=== PATIENT | female | born 1985 | race American Indian/Alaskan Native ===

== ENCOUNTER 2020-10-07 18:08 | Emergency (ER) | payer MEDICAID, OTHER ==
--- NOTE | 2020-10-07 18:54 | Emergency Department Report ---
ED HPI - General Chief complaint: Vaginal Bleeding Stated complaint: 17 WEEKS , LEAKING FLUID Time Seen by Provider: 10/07/20 18:28 Source: patient Mode of arrival: Wheelchair Limitations: No Limitations - History of Present Illness Initial comments: 35-year-old female currently 17 weeks with twins presents to the hospital complaining of leakage of fluid since this morning and vaginal bleeding with cramping that started in route to the hospital. Patient has used approximately 2 pantiliners today for the leakage of fluid. She describes vaginal bleeding as a gush of bleeding that then stops. Suprapubic cramping is mild to moderate in intensity and aggravated with palpation. This is patient's fifth and she has no living children. She has had 1 stillborn and 3 miscarriages including a triplet gestation. Patient is currently taking progesterone suppositories because her internal cervical os is open. MAC OPERATOR: Mild PACKAGE CHECKER - Related Data Home Medications Medication Instructions Recorded Confirmed Last Taken No.137/Iron/Folic Acd 1 each PO DAILY 10/07/20 10/07/20 Unknown [[facility] Vitamins Tablet] Progesterone 1 tab DAILY 10/07/20 10/07/20 Unknown Allergies Allergy/AdvReac Type Severity Reaction Status Date / Time No Known Allergies Allergy Verified 10/07/20 18:25 ED Review of Systems ROS: Stated complaint: 17 WEEKS , LEAKING FLUID Other details as noted in HPI Comment: All other systems reviewed and negative ED Past Medical Hx - Past Medical History Previous Medical History?: No - Surgical History Past Surgical History?: No - Social History Smoking Status: Former Smoker - Medications Home Medications: Home Medications Medication Instructions Recorded Confirmed Last Taken Type No.137/Iron/Folic Acd 1 each PO DAILY 10/07/20 10/07/20 Unknown History [[facility] Vitamins Tablet] Progesterone 1 tab DAILY 10/07/20 10/07/20 Unknown History ED Physical Exam - General Limitations: No Limitations - Other Other exam information: General: No acute distress Head: Atraumatic Eyes: normal appearance ENT: Moist mucous membranes Neck: Normal appearance, no midline tenderness Chest: Clear to auscultation bilaterally CV: Regular rate and rhythm Abdomen: Soft, normal bowel sounds, mild suprapubic tenderness on exam, nondistended, no rebound or guarding Back: Normal inspection Extremity: Normal inspection, full range of motion Neuro: Alert O x 3, no facial asymmetry, speech clear, no gross motor sensory deficit Psych: Appropriate behavior Skin: No rash ED Course Vital Signs 10/07/20 10/07/20 10/07/20 18:13 18:26 18:36 Temperature 98.4 F Pulse Rate 89 80 Respiratory 18 18 16 Rate Blood Pressure 139/82 Blood Pressure 141/85 [Left] O2 Sat by Pulse 99 100 Oximetry - Consultations Consultation #1: 10/08/20 22:00 Dr. Ascencio PACKAGE CHECKER did come to the ED to evaluate patient and will determine disposition ED Medical Decision Making - Lab Data Result diagrams: 10/07/20 18:40 10/07/20 18:40 Lab Results 10/07/20 10/07/20 10/07/20 Range/Units 18:40 18:40 18:40 WBC 8.5 (4.5-11.0) K/mm3 RBC 4.66 (3.65-5.03) M/mm3 Hgb 13.4 (10.1-14.3) gm/dl Hct 39.7 (30.3-42.9) % MCV 85 (79-97) fl MCH 29 (28-32) pg MCHC 34 (30-34) % RDW 14.0 (13.2-15.2) % Plt Count 192 (140-440) K/mm3 Lymph % (Auto) 21.1 (13.4-35.0) % Harrison % (Auto) 6.4 (0.0-7.3) % Eos % (Auto) 1.5 (0.0-4.3) % Baso % (Auto) 0.9 (0.0-1.8) % Lymph # (Auto) 1.8 (1.2-5.4) K/mm3 Harrison # (Auto) 0.5 (0.0-0.8) K/mm3 Eos # (Auto) 0.1 (0.0-0.4) K/mm3 Baso # (Auto) 0.1 (0.0-0.1) K/mm3 Seg Neutrophils % 70.1 H (40.0-70.0) % Seg Neutrophils # 6.0 (1.8-7.7) K/mm3 Sodium 135 L (137-145) mmol/L Potassium 3.7 (3.6-5.0) mmol/L Chloride 102.4 (98-107) mmol/L Carbon Dioxide 25 (22-30) mmol/L Anion Gap 11 mmol/L BUN 5 L (7-17) mg/dL Creatinine 0.5 L (0.6-1.2) mg/dL Estimated GFR > 60 ml/min BUN/Creatinine Ratio 10 % Glucose 89 (65-100) mg/dL Calcium 8.6 (8.4-10.2) mg/dL Total Bilirubin < 0.20 (0.1-1.2) mg/dL AST 13 (5-40) units/L ALT 10 (7-56) units/L Alkaline Phosphatase 44 (35-129) units/L Total Protein 6.4 (6.3-8.2) g/dL Albumin 3.4 L (3.9-5) g/dL Albumin/Globulin Ratio 1.1 % HCG, Quant 53791 H (0-4) mIU/mL Membranes Rupture (Negative) Blood Type 10/07/20 10/07/20 Range/Units 18:40 22:05 WBC (4.5-11.0) K/mm3 RBC (3.65-5.03) M/mm3 Hgb (10.1-14.3) gm/dl Hct (30.3-42.9) % MCV (79-97) fl MCH (28-32) pg MCHC (30-34) % RDW (13.2-15.2) % Plt Count (140-440) K/mm3 Lymph % (Auto) (13.4-35.0) % Harrison % (Auto) (0.0-7.3) % Eos % (Auto) (0.0-4.3) % Baso % (Auto) (0.0-1.8) % Lymph # (Auto) (1.2-5.4) K/mm3 Harrison # (Auto) (0.0-0.8) K/mm3 Eos # (Auto) (0.0-0.4) K/mm3 Baso # (Auto) (0.0-0.1) K/mm3 Seg Neutrophils % (40.0-70.0) % Seg Neutrophils # (1.8-7.7) K/mm3 Sodium (137-145) mmol/L Potassium (3.6-5.0) mmol/L Chloride (98-107) mmol/L Carbon Dioxide (22-30) mmol/L Anion Gap mmol/L BUN (7-17) mg/dL Creatinine (0.6-1.2) mg/dL Estimated GFR ml/min BUN/Creatinine Ratio % Glucose (65-100) mg/dL Calcium (8.4-10.2) mg/dL Total Bilirubin (0.1-1.2) mg/dL AST (5-40) units/L ALT (7-56) units/L Alkaline Phosphatase (35-129) units/L Total Protein (6.3-8.2) g/dL Albumin (3.9-5) g/dL Albumin/Globulin Ratio % HCG, Quant (0-4) mIU/mL Membranes Rupture Positive A (Negative) Blood Type A POSITIVE - Radiology Data Radiology results: report reviewed ULTRASOUND OBSTETRIC INDICATION / CLINICAL INFORMATION: 17wk twin, leak fluid and blood. Clinical Gestational Age (GA): 17.1 weeks.days TECHNIQUE: Transabdominal and Transvaginal. COMPARISON: None available. FINDINGS: There are twin intrauterine gestations. BABY A: Biparietal Diameter = 3.7 cm = 17.3 weeks.days Head Circumference = 13.6 cm = 17.1 weeks.days Abdominal Circumference = 11.4 cm = 17.1 weeks.days Femur Length = 2.3 cm = 17.0 weeks.days Average Ultrasound Age (AUA) = 17.1 weeks.days Heart Rate: 150 beats per minute. Estimated Weight in grams (if calculated): 182 Estimated Weight Growth Percentile (if calculated): 42% Position: cephalic. BABY B: Biparietal Diameter = 3.7 cm = 17.3 weeks.days Head Circumference = 14.3 cm = 17.4 weeks.days Abdominal Circumference = 11.6 cm = 17.3 weeks.days Femur Length = 2.4 cm = 17.2 weeks.days Average Ultrasound Age (AUA) = 17.3 weeks.days Heart Rate: 156 beats per minute. Estimated Weight in grams (if calculated): 192 Estimated Weight Growth Percentile (if calculated): 59% Position: breech. Cervix: closed. Length in cm (if measured): Not measured. Placenta: anterior and free of the os. Amniotic Fluid Volume: normal Maternal Adnexa: No significant abnormality. IMPRESSION: 1. Twin, living intrauterine gestations with estimated sonographic age of 17.1 and 17.3 weeks.days. 2. No significant sonographic abnormality. - Medical Decision Making 35-year-old female complains of leakage of fluid or vaginal bleeding. High risk due to multiple miscarriages. Ultrasound does not reveal any acute abnormality. Dr. Ascencio came to bedside to evaluate patient and perform physical exam. Please refer to her note. No active bleeding noted. Patient will be discharged with outpatient follow-up with high risk MAC OPERATOR. Pt does not require rhogam since RH + Critical Care Time: No Critical care attestation.: If time is entered above; I have spent that time in minutes in the direct care of this critically ill patient, excluding procedure time. ED Disposition Clinical Impression: 17 weeks gestation of , Short cervix, Vaginal discharge during in second trimester Twin gestation in second trimester Qualifiers: Multiple gestation type: dichorionic and diamniotic Qualified Code(s): O30.042 - Twin , dichorionic/diamniotic, second trimester Disposition: DC- TO HOME OR SELFCARE Is pt being admited?: No Does the pt Need Aspirin: No Condition: Stable Instructions: Second Trimester of , Cervical Insufficiency Additional Instructions: Follow-up with your doctor or doctor/clinic provided. Return if symptoms worsen as indicated by your discharge instructions. Referrals: LETHA ASCENCIO MD [Staff Physician] - (As scheduled) Time of Disposition: 00:27
[2020-10-07 18:59] LABS: Basophils # (Auto) 0.1 K/mm3 (0.0-0.1); Basophils % (Auto) 0.9 % (0.0-1.8); Eosinophils # (Auto) 0.1 K/mm3 (0.0-0.4); Eosinophils % (Auto) 1.5 % (0.0-4.3); Hematocrit 39.7 % (30.3-42.9); Hemoglobin 13.4 gm/dl (10.1-14.3); Lymphocytes # (Auto) 1.8 K/mm3 (1.2-5.4); Lymphocytes % (Auto) 21.1 % (13.4-35.0); Mean Corpuscular HGB Conc 34 % (30-34); Mean Corpuscular Volume 85 fl (79-97); Monocytes # (Auto) 0.5 K/mm3 (0.0-0.8); Monocytes % (Auto) 6.4 % (0.0-7.3); Platelet Count 192 K/mm3 (140-440); Red Blood Count 4.66 M/mm3 (3.65-5.03)
[2020-10-07 19:20] LABS: Alanine Aminotransferase 10 units/L (7-56); Albumin 3.4 g/dL (3.9-5); Blood Urea Nitrogen 5 mg/dL (7-17); Calcium 8.6 mg/dL (8.4-10.2); Hemolysis Index 1
[2020-10-07 19:21] LABS: BUN/Creatinine Ratio 10
[2020-10-07] MEDS ORDERED: ONDANSETRON 4 MG/2 ML INJ IV ONE (20:48)
--- NOTE | 2020-10-07 21:32 | Ultrasound Report ---
ULTRASOUND OBSTETRIC INDICATION / CLINICAL INFORMATION: 17wk twin, leak fluid and blood. Clinical Gestational Age (GA): 17.1 weeks.days TECHNIQUE: Transabdominal and Transvaginal. COMPARISON: None available. FINDINGS: There are twin intrauterine gestations. BABY A: Biparietal Diameter = 3.7 cm = 17.3 weeks.days Head Circumference = 13.6 cm = 17.1 weeks.days Abdominal Circumference = 11.4 cm = 17.1 weeks.days Femur Length = 2.3 cm = 17.0 weeks.days Average Ultrasound Age (AUA) = 17.1 weeks.days Heart Rate: 150 beats per minute. Estimated Weight in grams (if calculated): 182 Estimated Weight Growth Percentile (if calculated): 42% Position: cephalic. BABY B: Biparietal Diameter = 3.7 cm = 17.3 weeks.days Head Circumference = 14.3 cm = 17.4 weeks.days Abdominal Circumference = 11.6 cm = 17.3 weeks.days Femur Length = 2.4 cm = 17.2 weeks.days Average Ultrasound Age (AUA) = 17.3 weeks.days Heart Rate: 156 beats per minute. Estimated Weight in grams (if calculated): 192 Estimated Weight Growth Percentile (if calculated): 59% Position: breech. Cervix: closed. Length in cm (if measured): Not measured. Placenta: anterior and free of the os. Amniotic Fluid Volume: normal Maternal Adnexa: No significant abnormality. IMPRESSION: 1. Twin, living intrauterine gestations with estimated sonographic age of 17.1 and 17.3 weeks.days. 2. No significant sonographic abnormality. Signer Name: Jef Rodriguez MD Signed: 10/07/2020 9:28 PM Workstation Name: [id number]
--- NOTE | 2020-10-08 00:11 | Consultation ---
History of Present Illness - Reason for Consult Consult date: 10/08/20 - History of Present Illness This is a 35 yof with poor history who presented to the ED complaining of rupture of membranes. Estimated gestational age 17 weeks twin gestation complicated by shortened cervix. She has been comanaged with [facility]. She was just recently started on vaginal progesterone nightly. Patient states she started having some leaking earlier today that became more copious she called the office and was instructed to follow-up in the emergency department for evaluation Past History : 5 Term Births: 0 Premature Births: 1 Living Children: 0 Para: 1 Mult. Births: 0 Prev : 0 Prev. attempt? 0 Aborta: 3 Elect. Ab: 0 Spont. Ab: 3 Ectopics: 0 # 1 Delivery date: 2008 Weeks Gestation: 6.5 months Delivery type: Sex: Male weight: ?? Comments: PPROM, IOL, IUFD @ 6.5 months # 2 Delivery date: 2013 Weeks Gestation: 10w Delivery type: SAB Comments: triplet , D&C # 3 Delivery date: 2017 Weeks Gestation: 11wk Delivery type: SAB Comments: D&C # 4 Delivery date: 2018 Weeks Gestation: 4-6wks Delivery type: SAB Comments: no D&C Risk Factors: Smoked Tobacco Use: Never smoker Smokeless Tobacco Use: Never Passive smoke exposure: no Drug use: no HIV high-risk behavior: no Alcohol use: no Exercise: yes Times per week: 2 Type of Exercise: walking Seatbelt use: 100 % Past Medical History: hx HTN, no meds. 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 of genital herpes: no Partner hx. of genital herpes: no Rash, Viral, or Febrile illness since last LMP? no Varicella/Chicken Pox Status: Previous Disease Genetic History Congenital Heart Defect: Mom: no Dad: no Maxine Disease: Mom: no Dad: no Thalassemia Mom: no Dad: no Neural Tube Defect Mom: no Dad: no Down's Syndrome Mom: no Dad: no Joe-Sachs Mom: no Dad: no Sickle Cell Disease/Trait Mom: yes Dad: no Comments: +trait Hemophilia Mom: no Dad: no Muscular Dystrophy Mom: no Dad: no Cystic Fibrosis Mom: no Dad: no [place] Chorea Mom: no Dad: no Mental Retardation Mom: no Dad: no Fragile X Mom: no Dad: no Other Genetic/Chromosomal Disorder Mom: no Dad: no Child w/other defect Mom: no Dad: no Enviromental Exposures Xray Exposure: no Medication, drug, or alcohol use since LMP: no Chemical/Other Exposure: no Exposure to Cat Liter: no Hx of Parvovirus (Fifth Disease): no Occupational Exposure to Children: none Active Medications (reviewed today): None Current Allergies (reviewed today): No known allergies Medications and Allergies Allergies Allergy/AdvReac Type Severity Reaction Status Date / Time No Known Allergies Allergy Verified 10/07/20 18:25 Home Medications Medication Instructions Recorded Confirmed Last Taken Type No.137/Iron/Folic Acd 1 each PO DAILY 10/07/20 10/07/20 Unknown History [[facility] Vitamins Tablet] Progesterone 1 tab DAILY 10/07/20 10/07/20 Unknown History Exam - Constitutional Vitals: Temp Pulse Resp BP Pulse Ox 98.4 F 80 16 141/85 100 10/07/20 18:13 10/07/20 18:36 10/07/20 18:36 10/07/20 18:36 10/07/20 18:36 General appearance: Present: no acute distress - Respiratory Respiratory effort: normal - Abdominal General gastrointestinal: Present: soft, non-tender Female genitourinary: Present: normal, other (Speculum exam revealed thin white drainage on the perineum as well as on speculum exam. Cervix feels closed. No bleeding noted.) - Rectal Rectal Exam: deferred - Psychiatric Psychiatric: appropriate mood/affect, intact judgment & insight, memory intact, cooperative - Neurologic Neurologic: CNII-XII intact Results - Labs CBC & Chem 7: 10/07/20 18:40 10/07/20 18:40 Labs: Abnormal lab results 10/07/20 10/07/20 10/07/20 Range/Units 18:40 18:40 18:40 Seg Neutrophils % 70.1 H (40.0-70.0) % Sodium 135 L (137-145) mmol/L BUN 5 L (7-17) mg/dL Creatinine 0.5 L (0.6-1.2) mg/dL Albumin 3.4 L (3.9-5) g/dL HCG, Quant 65128 H (0-4) mIU/mL Membranes Rupture (Negative) 10/07/20 Range/Units 22:05 Seg Neutrophils % (40.0-70.0) % Sodium (137-145) mmol/L BUN (7-17) mg/dL Creatinine (0.6-1.2) mg/dL Albumin (3.9-5) g/dL HCG, Quant (0-4) mIU/mL Membranes Rupture Positive A (Negative) - Imaging and Cardiology US - abdomen: report reviewed, image reviewed Assessment and Plan - Patient Problems (1) 17 weeks gestation of Current Visit: Yes Status: Acute (2) Twin gestation in second trimester Current Visit: Yes Status: Acute Qualifiers: Multiple gestation type: dichorionic and diamniotic Qualified Code(s): O30.042 - Twin , dichorionic/diamniotic, second trimester (3) Short cervix Current Visit: Yes Status: Acute (4) Vaginal discharge during in second trimester Current Visit: Yes Status: Acute Plan to address problem: ROM test was performed that was positive however fern test was negative. Ultrasound images appear to reveal objectively normal fluid around both babies. Equivocal findings were discussed with patient. She shows no signs and symptoms of chorioamnionitis. Will allow home. Patient instructed no sex, no exercise. She was instructed to stay on her property and only lead for an emergency or for her office visits. I will have someone from my office discussed these findings with the edi specialist today and will contact patient with further management.
--- NOTE | 2020-10-08 00:19 | Discharge Summary ---
Providers - Providers Date of discharge: 10/08/20 Primary care physician: [facility]ELOP[facility]IST Hospitalization Reason for admission: other (Evaluation for possible rupture of membranes) Procedure: other (Ultrasound evaluation speculum exam) Condition at discharge: Stable Disposition: DC-01 TO HOME OR SELFCARE - Discharge Diagnoses (1) 17 weeks gestation of Status: Acute (2) Twin gestation in second trimester Status: Acute Qualifiers: Multiple gestation type: dichorionic and diamniotic Qualified Code(s): O30.042 - Twin , dichorionic/diamniotic, second trimester (3) Short cervix Status: Acute (4) Vaginal discharge during in second trimester Status: Acute Plan - Provider Discharge Summary Activity: other (No sex. No exercise. Stay at home. No heavy lifting greater than 10 pounds. Check your temperature twice a day call the office if 100.4x2, heavy vaginal bleeding, copious leaking of fluid from the vagina, or any concerns.) Diet: routine Additional instructions: [] Smoking cessation referral if applicable(refer to patient education folder for contact #) [] Refer to [facility] Booklet Call your doctor immediately for: * Fever > 100.5 * Heavy vaginal bleeding ( >1 pad per hour) * Severe persistent headache * Shortness of breath * Reddened, hot, painful area to leg or breast * Drainage or odor from incision. * Keep incision clean and dry at all times and follow doctor's instructions regarding bathing/showering - Follow up plan Follow up: LETHA JOHNSON MD [Staff Physician] - (As scheduled)
[2020-10-08 00:42] VITALS: BP 135/84
== END 2020-10-08 00:42 | disposition home or self-care (01) ==
LOC: ED 18:08
DX: O30.002 Twin pregnancy, unspecified number of placenta and unspecified number of amniotic sacs, second trimester (principal); O26.872 Cervical shortening, second trimester; O20.8 Other hemorrhage in early pregnancy; Z3A.17 17 weeks gestation of pregnancy; Z87.891 Personal history of nicotine dependence; Z79.899 Other long term (current) drug therapy
CPT/HCPCS: 36415; 76805; 76810; 80053; 84112; 84702; 85025; 86900; 86901; 96374; 99284; J2405

== ENCOUNTER 2020-10-08 04:11 | Observation (INO) | payer MEDICAID ==
--- NOTE | 2020-10-08 06:49 | History and Physical Report ---
History of Present Illness Date of examination: 10/08/20 Chief complaint: "Big gush of fluid from my vagina" History of present illness: This is a 35 yof with poor history who was evaluated and discharged home from the ED earlier this am for ? ROM. She is now 17 weeks with twin gesta tijoan who call back as soon as she arrived home stating she had a "big gush of fluid". Her previous exam revealed +ROM test, negative pooling, negative fern and subjectively normal FIDEL, +FHT's x2. She is known to have short cervix. She admitted now for another evaluation for ?ROM. She denies f/c/n/v bleeding and pelvic pain/pressure at this time. Past History : 5 Term Births: 0 Premature Births: 1 Living Children: 0 Para: 1 Mult. Births: 0 Prev : 0 Prev. attempt? 0 Aborta: 3 Elect. Ab: 0 Spont. Ab: 3 Ectopics: 0 # 1 Delivery date: 2008 Weeks Gestation: 6.5 months Delivery type: Infant Sex: Male weight: ?? Comments: PPROM, IOL, IUFD @ 6.5 months # 2 Delivery date: 2013 Weeks Gestation: 10w Delivery type: SAB Comments: triplet , D&C # 3 Delivery date: 2017 Weeks Gestation: 11wk Delivery type: SAB Comments: D&C # 4 Delivery date: 2018 Weeks Gestation: 4-6wks Delivery type: SAB Comments: no D&C Risk Factors: Smoked Tobacco Use: Never smoker Smokeless Tobacco Use: Never Passive smoke exposure: no Drug use: no HIV high-risk behavior: no Alcohol use: no Exercise: yes Times per week: 2 Type of Exercise: walking Seatbelt use: 100 % Past Medical History: hx HTN, no meds. 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 of genital herpes: no Partner hx. of genital herpes: no Rash, Viral, or Febrile illness since last LMP? no Varicella/Chicken Pox Status: Previous Disease Genetic History Congenital Heart Defect: Mom: no Dad: no Maxine Disease: Mom: no Dad: no Thalassemia Mom: no Dad: no Neural Tube Defect Mom: no Dad: no Down's Syndrome Mom: no Dad: no Joe-Sachs Mom: no Dad: no Sickle Cell Disease/Trait Mom: yes Dad: no Comments: +trait Hemophilia Mom: no Dad: no Muscular Dystrophy Mom: no Dad: no Cystic Fibrosis Mom: no Dad: no [place] Chorea Mom: no Dad: no Mental Retardation Mom: no Dad: no Fragile X Mom: no Dad: no Other Genetic/Chromosomal Disorder Mom: no Dad: no Child w/other defect Mom: no Dad: no Enviromental Exposures Xray Exposure: no Medication, drug, or alcohol use since LMP: no Chemical/Other Exposure: no Exposure to Cat Liter: no Hx of Parvovirus (Fifth Disease): no Occupational Exposure to Children: none Active Medications (reviewed today): None Current Allergies (reviewed today): No known allergies Medications and Allergies Allergies Allergy/AdvReac Type Severity Reaction Status Date / Time No Known Allergies Allergy Verified 10/07/20 18:25 Home Medications Medication Instructions Recorded Confirmed Last Taken Type No.137/Iron/Folic Acd 1 each PO DAILY 10/07/20 10/07/20 Unknown History [[facility] Vitamins Tablet] Progesterone 1 tab DAILY 10/07/20 10/07/20 Unknown History Exam - Constitutional Vitals: Temp Pulse Resp BP Pulse Ox 98.4 F 80 16 141/85 100 10/07/20 18:13 10/07/20 18:36 10/07/20 18:36 10/07/20 18:36 10/07/20 18:36 General appearance: Present: no acute distress - Respiratory Respiratory effort: normal - Abdominal General gastrointestinal: Present: soft, non-tender Female genitourinary: Present: normal, other (Speculum exam revealed thin white drainage on the perineum as well as on speculum exam. Unable to clearly visualize cervix d/t patient's intolerance to exam and limitation on nongyn exam bed. No blood noted. No obvioius evidence of parts in vagina) - Rectal Rectal Exam: deferred - Psychiatric Psychiatric: appropriate mood/affect, intact judgment & insight, memory intact, cooperative - Neurologic Neurologic: CNII-XII intact Results - Labs CBC & Chem 7: 10/07/20 18:40 10/07/20 18:40 Labs: Abnormal lab results 10/07/20 10/07/20 10/07/20 Range/Units 18:40 18:40 18:40 Seg Neutrophils % 70.1 H (40.0-70.0) % Sodium 135 L (137-145) mmol/L BUN 5 L (7-17) mg/dL Creatinine 0.5 L (0.6-1.2) mg/dL Albumin 3.4 L (3.9-5) g/dL HCG, Quant 13146 H (0-4) mIU/mL Membranes Rupture (Negative) 10/07/20 Range/Units 22:05 Seg Neutrophils % (40.0-70.0) % Sodium (137-145) mmol/L BUN (7-17) mg/dL Creatinine (0.6-1.2) mg/dL Albumin (3.9-5) g/dL HCG, Quant (0-4) mIU/mL Membranes Rupture Positive A (Negative) - Imaging and Cardiology US - abdomen: report reviewed, image reviewed Assessment and Plan - Patient Problems (1) 17 weeks gestation of Current Visit: Yes Status: Acute (2) Twin gestation in second trimester Current Visit: Yes Status: Acute Qualifiers: Multiple gestation type: dichorionic and diamniotic Qualified Code(s): O30.042 - Twin , dichorionic/diamniotic, second trimester (3) Short cervix Current Visit: Yes Status: Acute (4) Vaginal discharge during in second trimester Current Visit: Yes Status: Acute Plan to address problem: ROM test was performed that was positive however fern test and pool are negative. Medications and Allergies Allergies Allergy/AdvReac Type Severity Reaction Status Date / Time No Known Allergies Allergy Verified 10/07/20 18:25 Home Medications Medication Instructions Recorded Confirmed Last Taken Type No.137/Iron/Folic Acd 1 each PO DAILY 10/07/20 10/08/20 10/07/20 History [[facility] Vitamins Tablet] Progesterone 1 tab DAILY 10/07/20 10/08/20 10/06/20 History - Vital Signs Vital signs: Vital Signs Temp Pulse Resp BP 98.3 F 72 20 114/49 10/08/20 04:40 10/08/20 04:40 10/08/20 04:40 10/08/20 04:40 Temp Pulse Resp BP Pulse Ox 98.3 F 72 20 114/49 10/08/20 04:40 10/08/20 04:40 10/08/20 04:40 10/08/20 04:40 Results All other labs normal. Assessment and Plan - Patient Problems (1) 17 weeks gestation of Current Visit: No Status: Acute (2) Vaginal discharge during in second trimester Current Visit: No Status: Acute Plan to address problem: Will repeat US. Further plan of care after US reviewed. (3) Short cervix Current Visit: No Status: Acute (4) Twin gestation in second trimester Current Visit: No Status: Acute Qualifiers: Multiple gestation type: dichorionic and diamniotic Qualified Code(s): O30.042 - Twin , dichorionic/diamniotic, second trimester
--- NOTE | 2020-10-08 06:53 | Ultrasound Report ---
US OB limited INDICATION: poss ROM twin gestation. TECHNIQUE: Transabdominal. COMPARISON: None available. FINDINGS/IMPRESSION: Fetus A Heart Rate: 147 beats per minute with cephalic positioning. Fetus B Heart Rate: 132 beats per minute with breech positioning. Cervix: Cervix measures 1.3 cm and demonstrates funneling. Signer Name: Blayne De La Vega MD Signed: 10/08/2020 6:49 AM Workstation Name: [id number]
[2020-10-08] MEDS ORDERED: ACETAMINOPHEN 325 MG TAB PO PRN (09:00)
[2020-10-08] MEDS ORDERED: DOCUSATE SODIUM 100 MG CAP PO PRN (09:00)
--- NOTE | 2020-10-08 09:00 | Progress Note ---
Assessment and Plan Dr Bowman made aware of US findings. Instructed to call [facility] and consult with on-call for plan to remain in house or if pt can be d/c and followed outpt. Call placed to Dr Strauss Waiting his return call. - Patient Problems (1) 17 weeks gestation of Onset Date: ~10/08/20 Current Visit: No Status: Acute Plan to address problem: Jes[place] twin gestation @ 17w Viable IUP Twin A FHR 147; Twin B FHR 132 by US this AM (2) Short cervix Onset Date: ~10/08/20 Current Visit: No Status: Acute Plan to address problem: Cervical length this AM by US 1.3 with funneling (3) Vaginal discharge during in second trimester Onset Date: ~10/08/20 Current Visit: No Status: Acute Plan to address problem: US notes no obvious evidence of ROM. Ferning Negative as noted in Dr Ascencio's H&P. Subjective - Subjective Date of service: 10/08/20 (pt sleeping soundly) Principal diagnosis: IUP @ 17w Di/Di twin gestation Objective - Vital Signs Vital Signs: Vital Signs - 12hr 10/08/20 10/08/20 10/08/20 04:40 07:56 08:00 Temperature 98.3 F 98 F Pulse Rate 72 74 Respiratory 20 19 Rate Blood Pressure 114/49 115/69 O2 Sat by Pulse 100 Oximetry
--- NOTE | 2020-10-08 09:14 | Event Note ---
Date: 10/08/20 Pt does not appear to have SROM by exam times two by Dr. Ascencio. MFM called as pt is known to [facility] practice and in terms of positive ARNIE testing and no other s/sx of SROM or SAB at this time. Will con't to closely monitor but planning for d/c home with outpt follow up.
[2020-10-08] MEDS ORDERED: PRENATAL VIT27-FE FUMARATE-FOLIC ACID VIT TAB PO SCH (10:00)
--- NOTE | 2020-10-08 11:14 | Discharge Summary ---
Providers - Providers Date of discharge: 10/08/20 (Dr Strauss recommends outpt follow up) Attending physician: LETHA JOHNSON Primary care physician: LETHA JOHNSON Hospitalization Reason for admission: IUP - Hospital course: Pt presented with poss leaking/rupture of membranes. Ferning negative X 3 evaluations ROM test was + Dr Strauss exp it was a false + due to progestin used for shor tened cervix. He recommends outpt follow up Keep next appt with AMFM and with MYOB I did discuss with pt her +AFP for ONTD and that the result has been sent to [facility] She will have further eval with them. House arrest, complete pelvic rest, nothing in the vagina but the progestin, no lifting, try to avoid constipation, void [id number], drink atleast 6-8 bottles of water QD Condition at discharge: Good Disposition: DC-01 TO HOME OR SELFCARE - Discharge Diagnoses (1) 17 weeks gestation of Status: Acute Comment: Keep next garo appt with AMFM and with MYOB (2) Short cervix Status: Acute (3) Vaginal discharge during in second trimester Status: Acute Plan - Provider Discharge Summary Activity: other (complete pelvic rest) Diet: routine Additional instructions: [] Smoking cessation referral if applicable(refer to patient education folder for contact #) [] Refer to [facility]'s [facility] Booklet Call your doctor immediately for: * Fever > 100.5 * Heavy vaginal bleeding ( >1 pad per hour) * Severe persistent headache * Shortness of breath * Reddened, hot, painful area to leg or breast * Drainage or odor from incision. * Keep incision clean and dry at all times and follow doctor's instructions regarding bathing/showering - Follow up plan Follow up: LETHA JOHNSON MD [Primary Care Provider] - 7 Days (House arrest, complete pelvic rest, nothing in the vagina but the progestin, no lifting, try to avoid constipation, void [id number], drink atleast 6-8 bottles of water QD Call [phone] with any concerns.)
[2020-10-08 12:57] VITALS: BP 100/45
== END 2020-10-08 12:30 | disposition home or self-care (01) ==
LOC: TRG 04:11 → OB 04:19 → TRG 08:22 → OB 08:22
PROVIDERS: ADMIT Obstetrics & Gynecology; ATTEND Obstetrics & Gynecology
DX: O30.042 Twin pregnancy, dichorionic/diamniotic, second trimester (principal); Z20.822 Contact with and (suspected) exposure to COVID-19; O26.872 Cervical shortening, second trimester; O26.892 Other specified pregnancy related conditions, second trimester; N89.8 Other specified noninflammatory disorders of vagina; Z3A.17 17 weeks gestation of pregnancy
CPT/HCPCS: 76815; G0378; U0003

== ENCOUNTER 2020-10-10 04:18 | Emergency (ER) | payer MEDICAID ==
[2020-10-10 04:26] VITALS: BP 122/66
--- NOTE | 2020-10-10 04:45 | Emergency Department Report ---
ED HPI - General Chief complaint: Vaginal Bleeding Stated complaint: BLEEDING Source: patient Mode of arrival: Ambulatory Limitations: No Limitations - History of Present Illness Initial comments: Patient 35-year-old female , 18 weeks , for Dr. Ascencio who presents for vaginal spotting states she saw [employer] LOCATOR yesterday is on progesterone intravaginal cream, however continues to have vaginal spotting, patient denies fevers or chills, states abdominal cramping 3/10 intermittent. There is no nausea vomiting no active bleeding at this time per patient. - Related Data Home Medications Medication Instructions Recorded Confirmed Last Taken No.137/Iron/Folic Acd 1 each PO DAILY 10/07/20 10/08/20 10/07/20 [[facility] Vitamins Tablet] Progesterone 1 tab DAILY 10/07/20 10/08/20 10/06/20 Previous Rx's Medication Instructions Recorded Last Taken Type cephALEXin [Keflex] 500 mg PO Q12HR 10 Days #20 cap 10/10/20 Unknown Rx Allergies Allergy/AdvReac Type Severity Reaction Status Date / Time No Known Allergies Allergy Verified 10/07/20 18:25 ED Review of Systems ROS: Stated complaint: BLEEDING Other details as noted in HPI Constitutional: denies: chills, fever Eyes: denies: eye pain, eye discharge, vision change ENT: denies: ear pain, throat pain Respiratory: denies: cough, shortness of breath, wheezing Cardiovascular: as per HPI Endocrine: no symptoms reported Gastrointestinal: abdominal pain (abdominal cramping) Genitourinary: other (vaginal bleeding / spotting ). denies: urgency, dysuria, frequency, hematuria, discharge Musculoskeletal: denies: back pain, joint swelling, arthralgia Skin: denies: rash, lesions Neurological: denies: headache, weakness, paresthesias Psychiatric: denies: anxiety, depression Hematological/Lymphatic: denies: easy bleeding, easy bruising ED Past Medical Hx - Past Medical History Previous Medical History?: No Hx Congestive Heart Failure: No Hx Diabetes: No Hx Asthma: No Hx COPD: No - Surgical History Past Surgical History?: Yes Additional Surgical History: BSE - Social History Smoking Status: Never Smoker Substance Use Type: None - Medications Home Medications: Home Medications Medication Instructions Recorded Confirmed Last Taken Type No.137/Iron/Folic Acd 1 each PO DAILY 10/07/20 10/08/20 10/07/20 History [[facility] Vitamins Tablet] Progesterone 1 tab DAILY 10/07/20 10/08/20 10/06/20 History cephALEXin [Keflex] 500 mg PO Q12HR 10 Days #20 cap 10/10/20 Unknown Rx ED Physical Exam - General Limitations: No Limitations General appearance: alert, in no apparent distress - Head Head exam: Present: atraumatic, normocephalic - Eye Eye exam: Present: normal appearance - ENT ENT exam: Present: mucous membranes moist - Neck Neck exam: Present: normal inspection - Respiratory Respiratory exam: Present: normal lung sounds bilaterally. Absent: respiratory distress - Cardiovascular Cardiovascular Exam: Present: regular rate, normal rhythm, normal heart sounds. Absent: systolic murmur, diastolic murmur, rubs, gallop - GI/Abdominal GI/Abdominal exam: Present: other (pt defers exam ) - Rectal Rectal exam: Present: deferred - External exam: Present: other (pt refused exam ) - Extremities Exam Extremities exam: Present: normal inspection, full ROM - Back Exam Back exam: Present: normal inspection, full ROM - Neurological Exam Neurological exam: Present: alert, oriented X3, CN II-XII intact, normal gait - Psychiatric Psychiatric exam: Present: normal affect, normal mood - Skin Skin exam: Present: warm, dry, intact, normal color. Absent: rash ED Course Vital Signs 10/10/20 04:20 Temperature 98.2 F Pulse Rate 102 H Respiratory 18 Rate Blood Pressure 122/66 O2 Sat by Pulse 97 Oximetry ED Medical Decision Making - Lab Data Result diagrams: 10/10/20 04:54 Labs 10/10/20 10/10/20 10/10/20 04:54 04:54 05:52 WBC 17.5 H RBC 3.82 Hgb 10.9 Hct 32.3 D MCV 85 MCH 29 MCHC 34 RDW 14.0 Plt Count 234 Lymph % (Auto) 7.4 L [place] % (Auto) 5.8 Eos % (Auto) 0.4 Baso % (Auto) 0.2 Lymph # (Auto) 1.3 [place] # (Auto) 1.0 H Eos # (Auto) 0.1 Baso # (Auto) 0.0 Seg Neutrophils % 86.2 H Seg Neutrophils # 15.1 H HCG, Quant 71334 H Urine Color Yellow Urine Turbidity Clear Urine pH 6.0 Ur Specific [place] 1.014 Urine Protein <15 mg/dl Urine Glucose (UA) Neg Urine Ketones 20 Urine Blood Mod Urine Nitrite Neg Urine Bilirubin Neg Urine Urobilinogen < 2.0 Ur Leukocyte Esterase Sm Urine WBC (Auto) 12.0 H Urine RBC (Auto) 61.0 U Epithel Cells (Auto) 2.0 Urine Mucus Few - Radiology Data Radiology results: report reviewed, image reviewed 10/08/2020: INDICATION: poss ROM twin gestation. TECHNIQUE: Transabdominal. COMPARISON: None available. FINDINGS/IMPRESSION: Fetus A Heart Rate: 147 beats per minute with cephalic positioning. Fetus B Heart Rate: 132 beats per minute with breech positioning. Cervix: Cervix measures 1.3 cm and demonstrates funneling. Signer Name: Blayne De La Vega MD Signed: 10/08/2020 6:49 AM Workstation Name: [id number] Transcribed By: PAM Dictated By: Blayne De La Vega MD Electronically Authenticated By: Blayne De La Vega MD Signed Date/Time: 10/08/20648 DD/ 5 TD/TT: INDICATION: vaginal bleeding.. TECHNIQUE: Transabdominal. COMPARISON: None available. FINDINGS: There is a single intrauterine . Twin A: Biparietal Diameter = 3.8 cm Head Circumference = 13.4 cm Abdominal Circumference = 10.9 cm Femur Length = 2.3 cm Heart Rate: 161 beats per minute. Twin B: Biparietal Diameter = 3.5 cm Head Circumference = 12.5 cm Abdominal Circumference = 11.2 cm Femur Length = 2.3 cm Heart Rate: 177 beats per minute. Placenta: anterior. Grade 1. Amniotic Fluid Volume: Low Amniotic Fluid Index (FIDEL) in cm ( if calculated): Not calculated. IMPRESSION: 1.: Twin with oligohydramnios. Estimated ultrasound gestational age is 16 weeks and 6 days Signer Name: Blayne De La Vega MD Signed: 10/10/2020 6:11 AM Workstation Name: [id number] Transcribed By: PAM Dictated By: Blayne De La Vega MD Electronically Authenticated By: Blayne De La Vega MD Signed Date/Time: 10/10/20610 DD/ 7 TD/TT: - Medical Decision Making OB Commissioned Security Officer Nuha from Dr Ascencio' group called as OBGYN group caring for patient. recommendation 10am appointment with Dr Vasquez in [place] office. Pt advised of same, pt then eloped stating" Now I have to fucking [facility] " pt refused further evaluation including vagina exam. Critical care attestation.: If time is entered above; I have spent that time in minutes in the direct care of this critically ill patient, excluding procedure time. ED Disposition Clinical Impression: Vaginal bleeding before 22 weeks gestation UTI (urinary tract infection) during Qualifiers: Trimester: second trimester Qualified Code(s): O23.42 - Unspecified infection of urinary tract in , second trimester Disposition: ELOPED Is pt being admited?: No Does the pt Need Aspirin: No Condition: Undetermined Additional Instructions: follow up with your OBGYN [place] [facility] today at 10am with Dr. Vasquez. Return to emergency if symptoms worsen Prescriptions: cephALEXin [Keflex] 500 mg PO Q12HR 10 Days #20 cap Time of Disposition: 06:51
[2020-10-10 05:25] LABS: Basophils % (Auto) 0.2 % (0.0-1.8); Eosinophils # (Auto) 0.1 K/mm3 (0.0-0.4); Eosinophils % (Auto) 0.4 % (0.0-4.3); Hematocrit 32.3 % (30.3-42.9); Hemoglobin 10.9 gm/dl (10.1-14.3); Lymphocytes # (Auto) 1.3 K/mm3 (1.2-5.4); Lymphocytes % (Auto) 7.4 % (13.4-35.0); Mean Corpuscular HGB Conc 34 % (30-34); Mean Corpuscular Volume 85 fl (79-97); Monocytes % (Auto) 5.8 % (0.0-7.3); Platelet Count 234 K/mm3 (140-440); Red Blood Count 3.82 M/mm3 (3.65-5.03)
[2020-10-10 06:01] LABS: Bilirubin,Urine NEG (Negative); Blood,Urine MOD (Negative); Color,Urine Yellow (Yellow); Mucus,Urine FEW /HPF; Protein,Urine <15 mg/dL mg/dL (Negative); Urobilinogen,Urine < 2.0 mg/dL (<2.0)
[2020-10-10] MEDS ORDERED: cephALEXin 500 MG CAP PO ONE (06:15)
[2020-10-10] MEDS ORDERED: ACETAMINOPHEN 500 MG TAB PO ONE (06:15)
--- NOTE | 2020-10-10 06:15 | Ultrasound Report ---
US OB >= 14 wk fetus add gest INDICATION: vaginal bleeding.. TECHNIQUE: Transabdominal. COMPARISON: None available. FINDINGS: There is a single intrauterine . Twin A: Biparietal Diameter = 3.8 cm Head Circumference = 13.4 cm Abdominal Circumference = 10.9 cm Femur Length = 2.3 cm Heart Rate: 161 beats per minute. Twin B: Biparietal Diameter = 3.5 cm Head Circumference = 12.5 cm Abdominal Circumference = 11.2 cm Femur Length = 2.3 cm Heart Rate: 177 beats per minute. Placenta: anterior. Grade 1. Amniotic Fluid Volume: Low Amniotic Fluid Index (FIDEL) in cm (if calculated): Not calculated. IMPRESSION: 1.: Twin with oligohydramnios. Estimated ultrasound gestational age is 16 weeks and 6 days Signer Name: Blayne De La Vega MD Signed: 10/10/2020 6:11 AM Workstation Name: [id number]
== END 2020-10-10 06:20 | disposition left against medical advice (07) ==
LOC: ED 04:18
DX: O23.42 Unspecified infection of urinary tract in pregnancy, second trimester (principal); O20.8 Other hemorrhage in early pregnancy; Z3A.18 18 weeks gestation of pregnancy; Z98.890 Other specified postprocedural states; Z79.899 Other long term (current) drug therapy
CPT/HCPCS: 36415; 76805; 76810; 81001; 84702; 85025; 87086

== ENCOUNTER 2020-10-12 18:39 | Emergency (ER) | payer MEDICAID ==
[2020-10-12] MEDS ORDERED: SODIUM CHLORIDE 0.9% 1000 ML 1,000 ML IV ONE (19:33)
--- NOTE | 2020-10-12 19:38 | Emergency Department Report ---
ED Syncope HPI - General Chief Complaint: Fall Stated Complaint: SYNCOPE Time Seen by Provider: 10/12/20 19:17 - History of Present Illness Initial Comments: Patient is 35 years old female who had a recently had a D&C after she lost her twin . Patient stated that she received a blood transfusion before discharge. Patient stated that she was discharged from the hospital today. Patient stated that she was talking to her friend and all of a sudden she passed out for few seconds. Patient stated that she did hit back of her head but denied any headache. Patient stated that she is back to normal. Patient denied any chest pain or shortness of breath. No fever or chills. Timing/Prior Episodes: no prior history, single episode today Precipitating Factors: Positive: lightheadedness Context: standing Loss of Consciousness: brief (seconds) Current Symptoms: back to normal - Related Data Allergies/Adverse Reactions: Allergies No Known Allergies Allergy (Verified 10/07/20 18:25) Home Medications: Ambulatory Orders No.137/Iron/Folic Acd [[facility] Vitamins Tablet] 1 each PO DAILY 10/07/20 Progesterone 1 tab DAILY 10/07/20 cephALEXin [Keflex] 500 mg PO Q12HR 10 Days #20 cap 10/10/20 ED Review of Systems ROS: Stated complaint: SYNCOPE Other details as noted in HPI Comment: All other systems reviewed and negative Constitutional: denies: chills, fever Respiratory: denies: cough, shortness of breath, SOB with exertion, SOB at rest Cardiovascular: denies: chest pain, palpitations Gastrointestinal: denies: abdominal pain, nausea, vomiting Musculoskeletal: denies: back pain Neurological: denies: headache, weakness, numbness, paresthesias, confusion Psychiatric: denies: depression, suicidal thoughts ED Past Medical Hx - Past Medical History Previous Medical History?: Yes Hx Congestive Heart Failure: No Hx Diabetes: No Hx Asthma: No Hx COPD: No Additional medical history: miscarriage x2 days - Surgical History Past Surgical History?: Yes Additional Surgical History: BSE - Social History Smoking Status: Never Smoker Substance Use Type: Marijuana - Medications Home Medications: Home Medications Medication Instructions Recorded Confirmed Last Taken Type No.137/Iron/Folic Acd 1 each PO DAILY 10/07/20 10/08/20 10/07/20 History [[facility] Vitamins Tablet] Progesterone 1 tab DAILY 10/07/20 10/08/20 10/06/20 History cephALEXin [Keflex] 500 mg PO Q12HR 10 Days #20 cap 10/10/20 Unknown Rx ED Physical Exam - General Limitations: No Limitations General appearance: alert, in no apparent distress - Head Head exam: Present: atraumatic, normocephalic, normal inspection - Eye Eye exam: Present: normal appearance - ENT ENT exam: Present: normal exam, normal orophraynx, mucous membranes moist - Neck Neck exam: Present: normal inspection, full ROM. Absent: tenderness, meningismus - Respiratory Respiratory exam: Present: normal lung sounds bilaterally - Cardiovascular Cardiovascular Exam: Present: regular rate, normal rhythm, normal heart sounds - GI/Abdominal GI/Abdominal exam: Present: soft, normal bowel sounds. Absent: distended, tenderness, guarding, rebound, rigid, organomegaly, mass, bruit, pulsatile mass, hernia - Extremities Exam Extremities exam: Present: normal inspection, full ROM, normal capillary refill. Absent: tenderness - Back Exam Back exam: Present: normal inspection, full ROM. Absent: CVA tenderness (R), CVA tenderness (L) - Neurological Exam Neurological exam: Present: alert, oriented X3, CN II-XII intact - Psychiatric Psychiatric exam: Present: normal mood - Skin Skin exam: Present: warm, intact, normal color ED Course Vital Signs 10/12/20 19:14 Temperature 97.8 F Pulse Rate 83 Respiratory 18 Rate Blood Pressure 114/48 [Right] O2 Sat by Pulse 100 Oximetry ED Medical Decision Making - Lab Data Result diagrams: 10/12/20 19:38 10/12/20 19:38 - Medical Decision Making Patient is 35 years old female who had a recently had a D&C after she lost her twin . Patient stated that she received a blood transfusion before discharge. Patient stated that she was discharged from the hospital today. Patient stated that she was talking to her friend and all of a sudden she passed out for few seconds. Patient stated that she did hit back of her head but denied any headache. Patient stated that she is back to normal. Patient denied any chest pain or shortness of breath. No fever or chills. Patient is started on normal saline. Labs reviewed and showed a hemoglobin of 7.2. Patient is stated that her bleeding is minimal. Patient stated that she did receive blood transfusion after her D&C at [facility]. Patient stated that she is feeling much better. Patient is able to ambulate with no difficulty. Patient advised to follow-up with Dr. Ascencio in the next 2 to 3 days and to return to the ER she develop any new symptoms. Critical care attestation.: If time is entered above; I have spent that time in minutes in the direct care of this critically ill patient, excluding procedure time. ED Disposition Clinical Impression: Syncope Disposition: DC-01 TO HOME OR SELFCARE Is pt being admited?: No Condition: Stable Instructions: Syncope (ED), Syncope, [id number] Referrals: LETHA ASCENCIO MD [Primary Care Provider] - 3-5 Days
[2020-10-12 19:53] LABS: Basophils % (Auto) 0.2 % (0.0-1.8); Eosinophils # (Auto) 0.3 K/mm3 (0.0-0.4); Eosinophils % (Auto) 1.6 % (0.0-4.3); Hematocrit 21.3 % (30.3-42.9); Hemoglobin 7.2 gm/dl (10.1-14.3); Lymphocytes # (Auto) 2.4 K/mm3 (1.2-5.4); Lymphocytes % (Auto) 14.7 % (13.4-35.0); Mean Corpuscular HGB Conc 34 % (30-34); Mean Corpuscular Volume 85 fl (79-97); Monocytes % (Auto) 5.9 % (0.0-7.3); Platelet Count 218 K/mm3 (140-440); Red Blood Count 2.52 M/mm3 (3.65-5.03); Red Cell Distribution Width 13.6 % (13.2-15.2)
[2020-10-12 20:04] LABS: INR 0.96 (0.87-1.13)
[2020-10-12 20:18] LABS: Alanine Aminotransferase 10 units/L (7-56); Albumin 2.8 g/dL (3.9-5); Blood Urea Nitrogen 8 mg/dL (7-17); Calcium 8.1 mg/dL (8.4-10.2); Hemolysis Index 1
[2020-10-12 20:21] LABS: BUN/Creatinine Ratio 13
[2020-10-12 20:22] LABS: Bilirubin,Direct < 0.2 mg/dL (0-0.2)
[2020-10-12 22:16] VITALS: BP 110/56
== END 2020-10-12 22:32 | disposition home or self-care (01) ==
LOC: ED 18:39
DX: R55 Syncope and collapse (principal); F12.10 Cannabis abuse, uncomplicated; Z98.890 Other specified postprocedural states; Z79.899 Other long term (current) drug therapy
CPT/HCPCS: 36415; 80048; 80076; 84484; 85025; 85610; 86850; 86900; 86901; 93005; 96360; 96361; 99284; J7030